=== PATIENT | male | born 1970 | race Caucasian/White ===

== ENCOUNTER 2021-03-02 07:38 | Outpatient (RCR) | payer BC, SELFPAY | END 2021-05-21 11:19 | disposition home or self-care (01) | LOC: ANHDMC 07:38 | PROVIDERS: Visit Provider Family Medicine | DX: E11.9 Type 2 diabetes mellitus without complications (principal) | CPT/HCPCS: 99199 ==

== ENCOUNTER 2021-06-21 14:04 | Outpatient (CLI) | payer BC, SELFPAY ==
[2021-06-21 18:48] LABS: Hematocrit 42.9 % (42.0-52.0); Hemoglobin 14.8 g/dL (14.0-18.0); Mean Corpuscular HGB Conc 34.5 g/dl (32-36); Mean Corpuscular Hemoglobin 32.9 pg (26-34); Mean Corpuscular Volume 95.3 fl (80-100); Mean Platelet Volume 9.2 fl (7.4-10.4); Platelet Count Result 184 k/mm3 (150-375); Red Cell Distribution Width 12.6 % (11.5-14.5); White Blood Count 7.6 K/mm3 (4.5-10.0)
[2021-06-21 18:55] LABS: Alanine Aminotransferase 44 U/L (4-50); Alanine Aminotransferase 45 U/L (4-50); Albumin Level 4.5 g/dL (3.5-5.1); Alkaline Phosphatase 90 U/L (38-126); Alkaline Phosphatase 94 U/L (38-126); Anion Gap 8 mmol/L (8-16); Aspartate Amino Transferase 41 U/L (17-59); Bilirubin,Total 0.4 mg/dL (0.2-1.3); Blood Urea Nitrogen 14 mg/dL (9-20); Calcium 9.4 mg/dL (8.4-10.2); Carbon Dioxide 28 mmol/L (22-30); Chloride 106 mmol/L (98-107); Estimated Glomerular Filt Rate > 60; Glucose 87 mg/dL (65-110); Potassium 4.2 mmol/L (3.4-5.0); Sodium 142 mmol/L (137-145)
[2021-06-21 19:05] LABS: Hemoglobin A1C 5.4 % (<5.7)
[2021-06-21 19:22] LABS: Prostate Specific Antigen 0.4 ng/mL (< OR = 4.0)
[2021-06-21 19:25] LABS: Creatinine Urine 124.5 mg/dL
[2021-06-21 19:29] LABS: MALB Creatinine Ratio 5.9 mg/g (0-30); Microalbumin Urine Random 7.4 mg/L (0-16.7)
[2021-06-23 17:01] LABS: Ionized Calcium 4.9 mg/dL (4.8-5.6)
== END 2021-06-21 14:05 | disposition home or self-care (01) ==
LOC: ANHBWCLAB 14:06
PROVIDERS: PCP Family Medicine; Visit Provider Family Medicine
DX: Z00.00 Encounter for general adult medical examination without abnormal findings (principal); E11.9 Type 2 diabetes mellitus without complications; I10 Essential (primary) hypertension; E87.1 Hypo-osmolality and hyponatremia; E83.52 Hypercalcemia; K21.9 Gastro-esophageal reflux disease without esophagitis; F41.9 Anxiety disorder, unspecified; R74.8 Abnormal levels of other serum enzymes; G57.10 Meralgia paresthetica, unspecified lower limb
CPT/HCPCS: 36415; 80053; 80076; 82043; 82330; 82607; 83036; 84153; 85027; G0103

== ENCOUNTER 2022-05-19 13:36 | Outpatient (CLI) | payer BC, SELFPAY ==
--- NOTE | ~2022-05-19 | XR_ITS ---
[id number] DATE: 05/19/2022 13:52 INDICATION: Numbness of ball of foot TECHNIQUE: 4 views COMPARISON: None FINDINGS: There is slight plantar calcaneal enthesopathy. No fracture, dislocation, periosteal reaction or bone destruction. No erosive change. There is mild osteoarthritis at the first tarsometatarsal joint. 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 Reviewed, dictated and finalized at [facility]. [employer]ING MACHINE OPERATOR
== END 2022-05-19 13:37 | disposition home or self-care (01) ==
PROVIDERS: PCP Family Medicine; Visit Provider Family Medicine
DX: R20.0 Anesthesia of skin (principal)
CPT/HCPCS: 73630

== ENCOUNTER 2023-07-02 09:54 | Emergency (ER) | payer OTHER, BC, SELFPAY ==
--- NOTE | ~2023-07-02 | XR_ITS ---
EXAMINATION: XR lumbar spine 2-3V DATE: 07/02/2023 10:30 INDICATION: Low back pain post fall on ice TECHNIQUE: Anteroposterior and lateral views of the lumbar spine, and cone-down lateral view of the l umbosacral junction were obtained. COMPARISON: None. FINDINGS: 4 mm anterolisthesis L5 on S1. There is suggestion of some lucency projecting across the L5 posterior elements suspicious for pars intra-articular is defect. Alignment is otherwise normal. Vertebral bod y heights are normal. Disc heights are normal. Mild osteoarthritis of the left sacroiliac joint. IMPRESSION: 1. 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 Reviewed, dictated and finalized at [facility]. RY SHEAR CUTTER IMPRESSION: 1. Likely L5 spondylolysis with grade 1 anterolisthesis L5 on S1 and suggestion of L5 pars in particular is defects.
[2023-07-02 10:10] VITALS: BP 159/88; PULSE 96; RESP 18; TEMP 36.9; O2SAT 98
[2023-07-02 10:20] VITALS: BP 159/88; PULSE 96; RESP 18; TEMP 36.9; O2SAT 98
--- NOTE | 2023-07-02 10:21 | ED.FALL ---
HPI - Fall General Chief Complaint: Fall Stated Complaint: Fall Injury/Right Knee/Upper Back/Head/Left Elbow History of Present Illness HPI Narrative: Patient presents for evaluation after a took a fall yesterday at home. Patient states he slipped on the ice and fell backwards. Patient states he hit the right side of his head on his car but denies any headache any problems at this time. No loss of consciousness at that time. Patient does have some tenderness to his left elbow and right knee no bruising visible no edema noted. Patient's main concern is his lower back. Patient has low back pain. No urinary problems no bowel or bladder problems no saddle anesthesia no numbness or tingling no radiation of pain. Related Data Home Medications Medication Instructions Recorded Confirmed dexmethylphenidate 2.5 mg tablet 2.5 mg PO DAILY 07/07/21 06/28/23 (Focalin) vilazodone 40 mg tablet (Viibryd) 40 mg PO DAILY 12/07/21 06/28/23 buspirone 15 mg tablet mg 07/02/23 clonazepam 0.5 mg tablet mg 07/02/23 dapagliflozin propanediol 10 mg mg 07/02/23 07/02/23 tablet (Farxiga) lisdexamfetamine 30 mg capsule mg 07/02/23 quetiapine 300 mg tablet,extended mg PO 07/02/23 release 24 hr tirzepatide 5 mg/0.5 mL mg subcut 07/02/23 subcutaneous pen injector (Yoshi) zolpidem 12.5 mg tablet,extended mg PO 07/02/23 release,multiphase Allergies Allergy/AdvReac Type Severity Reaction Status Date / Time metformin AdvReac Intermediate nausea, Verified 07/02/23 09:56 groggy Review of Systems Review of Systems: CONSTITUTIONAL: Denies fever, chills, or sweats. EYES: Denies visual changes, redness, or discharge. ENT: Denies rhinorrhea, congestion, sore throat, or otalgia. CARDIOVASCULAR: Denies chest pain, palpitations, or edema. RESPIRATORY: Denies cough or dyspnea. GASTROINTESTINAL: Denies abdominal pain, nausea, vomiting, or diarrhea. GENITOURINARY: Denies dysuria or hematuria. SKIN: Denies rash or itching. MUSCULOSKELETAL: Denies back pain, joint pain, or myalgia. NEUROLOGIC: Denies headache, numbness, or weakness. PSYCHIATRIC: Denies anxiety or depression. [facility] Past Medical History Medical History Anxiety Dietary counseling and surveillance Elevated liver enzymes GERD (gastroesophageal reflux disease) Hernia Hypercalcemia Hyperopia Hypertension Hyponatremia Meralgia paraesthetica Sleep apnea Tachycardia Type 2 diabetes mellitus Surgical History Surgical History H/O elbow surgery Family History Family History Other Cancer Cerebrovascular accident Depression Diabetes mellitus Hypertension Social History Social History Smoking status: Never smoker Second hand tobacco smoke exposure: Yes Alcohol intake: current Alcohol use details: Socially Substance use: never Lack of Transportation: No Lack of Food: Never True Current Housing: I Have Housing Concerned About Future Housing: No Difficulty Paying Gas/Electric Bills: No Difficulty Paying for Meds: No Currently Unemployed: No Education: High School Diploma/GED Difficulty w/ Childcare or Family Care: No Living arrangements: with family Comments At time of signature, agree with nursing past medical, surgical, social and family history. There is no relevant family history pertinent to the presenting complaint Exam Narrative: GENERAL: Well-appearing, well-nourished, and in no acute distress. HEAD: Normocephalic, atraumatic. EYES: PERRLA and EOMI. ENT: Nares clear, no rhinorrhea or epistaxis. Mucous membranes moist. NECK: Supple. CHEST: Clear to auscultation. No respiratory distress. HEART: Regular rate and rhythm. No murmur heard. Normal peripheral pulses. ABDOMEN: Soft, n
== END 2023-07-02 11:02 | disposition home or self-care (01) ==
PROVIDERS: Emergency Provider Nurse Practitioner Family; PCP Family Medicine
DX: S39.012A Strain of muscle, fascia and tendon of lower back, initial encounter (principal); I10 Essential (primary) hypertension; E11.9 Type 2 diabetes mellitus without complications; Z79.899 Other long term (current) drug therapy; W00.0XXA Fall on same level due to ice and snow, initial encounter; Y92.009 Unspecified place in unspecified non-institutional (private) residence as the place of occurrence of the external cause
CPT/HCPCS: 72100; 99213; G0463

== ENCOUNTER 2023-08-19 16:10 | Emergency (ER) | payer BC, SELFPAY ==
--- NOTE | ~2023-08-19 | XR_ITS ---
EXAMINATION: XR chest 2V Exam Date/Time: 08/19/2023 17:04 CDT HISTORY: cough and SOB Comparison: None. RESULT: Lines, tubes, and devices: None. Lungs and pleura: Clear. Cardiomediastinal silhouette: Unremarkable. Other: No acute osseous or upper abdominal finding. IMPRESSION: No acute cardiopulmonary process. Reviewed, dictated and finalized at [facility].
[2023-08-19 16:20] VITALS: BP 147/83; PULSE 97; RESP 20; TEMP 37.6; O2SAT 96
[2023-08-19] MEDS: ALBUTEROL SULFATE NEB 2.5 MG/3 ML INH INHALATION (17:22)
[2023-08-19] MEDS: methylPREDNISolone SOD SUCC 125 MG VIAL IM (17:22)
[2023-08-19] MEDS: IPRATROPIUM BR 0.02% INH SOLN 0.5 MG/2.5 ML VIAL INHALATION (17:22)
--- NOTE | 2023-08-19 17:38 | ED.GENADULT ---
HPI - General Adult General Chief complaint: Upper Respiratory Infection Stated complaint: throat/congestion/weak Source: patient Mode of arrival: ambulatory Limitations: no limitations History of Present Illness HPI narrative: Patient presents for evaluation of sick symptoms for the last 3 days. Symptoms include fever, sinus congestion, mucopurulent discharge from the nares, sore throat, fatigue, generalized body aches, productive cough of yellow/green sputum, shortness of breath and wheezing. No nausea, vomiting, or diarrhea. He does not smoke. He has been taking nyquil, mucinex and tessalon with mild improvement in his symptoms thereafter. He is diabetic but states home blood sugars are well controlled. No underlying hx of asthma or COPD. Related Data Home Medications Medication Instructions Recorded Confirmed dexmethylphenidate 2.5 mg tablet 2.5 mg PO DAILY 07/07/21 08/19/23 (Focalin) vilazodone 40 mg tablet (Viibryd) 40 mg PO DAILY 12/07/21 08/19/23 buspirone 15 mg tablet 15 mg PO DAILY 07/02/23 08/19/23 clonazepam 0.5 mg tablet 0.5 mg PO DAILY 07/02/23 08/19/23 lisdexamfetamine 30 mg capsule 30 mg PO DAILY 07/02/23 08/19/23 quetiapine 300 mg tablet,extended 300 mg PO DAILY 07/02/23 08/19/23 release 24 hr zolpidem 12.5 mg tablet,extended 12.5 mg PO DAILY 07/02/23 08/19/23 release,multiphase Allergies Allergy/AdvReac Type Severity Reaction Status Date / Time metformin AdvReac Intermediate nausea, Verified 08/19/23 16:30 groggy Review of Systems Review of Systems: CONSTITUTIONAL: Reports fever. Denies chills. EYES: Denies visual changes, redness, or discharge. ENT: Reports sinus congestion, mucopurulent discharge from the nares, sore throat. CARDIOVASCULAR: Denies chest pain, palpitations, or edema. RESPIRATORY: Reports productive cough, shortness of breath and wheezing. GASTROINTESTINAL: Denies abdominal pain, nausea, vomiting, or diarrhea. GENITOURINARY: Denies dysuria or hematuria. SKIN: Denies rash or itching. MUSCULOSKELETAL: Reports generalized body NEUROLOGIC: Denies headache, numbness, dizziness, or weakness. PSYCHIATRIC: Denies anxiety or depression. PMFSH Past Medical History Medical History Anxiety Dietary counseling and surveillance Elevated liver enzymes GERD (gastroesophageal reflux disease) Hernia Hypercalcemia Hyperopia Hypertension Hyponatremia Meralgia paraesthetica Sleep apnea Tachycardia Type 2 diabetes mellitus Surgical History Surgical History H/O elbow surgery Family History Family History Other Cancer Cerebrovascular accident Depression Diabetes mellitus Hypertension Social History Social History Smoking status: Never smoker Second hand tobacco smoke exposure: Yes Alcohol intake: current Alcohol use details: Socially Substance use: never Lack of Transportation: No Lack of Food: Never True Current Housing: I Have Housing Concerned About Future Housing: No Difficulty Paying Gas/Electric Bills: No Difficulty Paying for Meds: No Currently Unemployed: No Education: High School Diploma/GED Difficulty w/ Childcare or Family Care: No Living arrangements: with family Exam Narrative: GENERAL: Appears acutely ill but nontoxic. Well-nourished, and in no acute distress. HEAD: Normocephalic, atraumatic. EYES: PERRLA and EOMI. ENT: Nares clear, no rhinorrhea or epistaxis. Mucous membranes moist. Oropharynx without tonsillar hypertrophy exudate or other lesions. Bilateral TMs pearly lebron nonbulging NECK: Supple. No adenopathy or masses. No carotid bruits or JVD CHEST: Cough present on exam. Rales noted in posterior lung cherry bilaterally HEART: Regular rate and rhythm. No murmu
== END 2023-08-19 18:05 | disposition home or self-care (01) ==
PROVIDERS: Emergency Provider Nurse Practitioner; PCP Family Medicine
DX: J18.9 Pneumonia, unspecified organism (principal); Z20.822 Contact with and (suspected) exposure to COVID-19; K21.9 Gastro-esophageal reflux disease without esophagitis; I10 Essential (primary) hypertension; E11.9 Type 2 diabetes mellitus without complications; F41.9 Anxiety disorder, unspecified
CPT/HCPCS: 71046; 87081; 87426; 87804; 87880; 94640; 96372; 99213; G0463; J2919

== ENCOUNTER 2024-02-13 11:41 | Emergency (ER) | payer BC, SELFPAY ==
[2024-02-13 11:46] VITALS: BP 171/81; PULSE 92; RESP 20; TEMP 36.7; O2SAT 100
--- NOTE | 2024-02-13 12:00 | ED.GENADULT ---
HPI - General Adult General Chief complaint: Abdominal Pain Stated complaint: Abdo pain Time Seen by Provider: 02/13/24 12:01 Source: patient, RN notes reviewed and old records reviewed Mode of arrival: ambulatory Limitations: no limitations History of Present Illness HPI narrative: 53-year-old male to [facility] for complaint of right upper quadrant pain with acute onset last night while resting. Patient reports the pain varies from 6/10 to 9/10. Patient has attempted to treat at home with Tums and Pepto-Bismol with little to no relief. Patient also endorsing nausea , dry heaves, decreased appetite, interrupted sleep ,belching, and decreased bowel movements. Patient denies vomiting, diarrhea, chest pain, shortness of breath, difficulty swallowing. Patient is sitting uncomfortably in exam room due to pain. Respirations even and nonlabored. No acute distress. Related Data Home Medications Medication Instructions Recorded Confirmed dexmethylphenidate 2.5 mg tablet 2.5 mg PO DAILY 07/07/21 02/13/24 (Focalin) vilazodone 40 mg tablet (Viibryd) 40 mg PO DAILY 12/07/21 02/13/24 buspirone 15 mg tablet 15 mg PO DAILY 07/02/23 02/13/24 clonazepam 0.5 mg tablet 0.5 mg PO DAILY 07/02/23 02/13/24 lisdexamfetamine 30 mg capsule 30 mg PO DAILY 07/02/23 02/13/24 quetiapine 300 mg tablet,extended 300 mg PO DAILY 07/02/23 02/13/24 release 24 hr zolpidem 12.5 mg tablet,extended 12.5 mg PO DAILY 07/02/23 02/13/24 release,multiphase Allergies Allergy/AdvReac Type Severity Reaction Status Date / Time metformin AdvReac Intermediate nausea, Verified 02/13/24 11:48 groggy Review of Systems Review of Systems: All systems reviewed & are unremarkable except as noted in HPI and below Constitutional: Constitutional: Reports no additional constitutional complaints Eyes: Eyes: Reports no additional eye complaints ENT: Reports system reviewed and no additional complaints, except as documented Cardiovascular: Cardiovascular: Reports no additional cardiovascular complaints, Denies chest pain and Denies dyspnea Respiratory: Respiratory: Reports no additional respiratory complaints, Denies cough and Denies dyspnea Gastrointestinal: Gastrointestinal: Reports as per HPI, Reports abdominal pain ( Right upper quadrant), Reports belching and Reports nausea Genitourinary: Genitourinary: Reports no additional male genitourinary complaints Musculoskeletal: Musculoskeletal: Reports no additional musculoskeletal complaints Neurologic: Reports system reviewed and no additional complaints, except as documented Psychiatric: Psychiatric: Reports no additional psychiatric complaints PMFSH Past Medical History Medical History Anxiety Dietary counseling and surveillance Elevated liver enzymes GERD (gastroesophageal reflux disease) Hernia Hypercalcemia Hyperopia Hypertension Hyponatremia Meralgia paraesthetica Sleep apnea Tachycardia Type 2 diabetes mellitus Surgical History Surgical History H/O elbow surgery Family History Family History Other Cancer Cerebrovascular accident Depression Diabetes mellitus Hypertension Social History Social History Smoking status: Never smoker Second hand tobacco smoke exposure: Yes Alcohol intake: current Alcohol use details: Socially Substance use: never Lack of Transportation: No Lack of Food: Never True Current Housing: I Have Housing Concerned About Future Housing: No Difficulty Paying Gas/Electric Bills: No Difficulty Paying for Meds: No Currently Unemployed: No Education: High School Diploma/GED Difficulty w/ Childcare or Family Care: No Living arrangements: with family Comments At the time of my signat
[2024-02-13 12:03] VITALS: BP 171/81; PULSE 92; RESP 20; TEMP 36.7; O2SAT 100
== END 2024-02-13 12:25 | disposition short-term general hospital (02) ==
PROVIDERS: Emergency Provider Nurse Practitioner Family; PCP Nurse Practitioner Adult Health
DX: R10.11 Right upper quadrant pain (principal); R11.0 Nausea; R63.8 Other symptoms and signs concerning food and fluid intake; K21.9 Gastro-esophageal reflux disease without esophagitis; I10 Essential (primary) hypertension; E11.9 Type 2 diabetes mellitus without complications; F41.9 Anxiety disorder, unspecified
CPT/HCPCS: 99212; G0463